=== PATIENT | female | born 1970 | race Caucasian/White ===

== ENCOUNTER 2018-01-25 07:16 | Outpatient (CLI) | payer OTHER ==
[~2018-01-25 07:16] MED LIST: ADVAIR HFA 115/12 GM; EFFEXOR XR75 MG; MECLIZINE HCL25 MG PO; PEPCID40 MG PO; PROVENTIL17 G1; SYNTHROID100 MCG; SYNTHROID75 MCG; ZOFRAN4 MG PO
== END 2018-01-25 07:27 | disposition home or self-care (01) ==
LOC: LAB 07:16
DX: E34.9 Endocrine disorder, unspecified (principal); N95.1 Menopausal and female climacteric states; O47.00 False labor before 37 completed weeks of gestation, unspecified trimester